=== PATIENT | male | born 1950 | race Hispanic/Latino ===

== ENCOUNTER 2025-02-24 08:47 | Emergency (ER) | payer MEDICARE ==
[~2025-02-24] VITALS: Ht 167.6 cm; Wt 95.3 kg
[~2025-02-24 08:47] MED LIST: AMLODIPINE BESYL5 MG PO; AMOXICILLIN500 MG PO; ANAPROX DS550 MG PEG; BENZONATATE100 MG PO; CLINDAMYCIN HC300 MG PO; ELIQUIS5 MG PO; ENALAPRIL MALEA20 MG PO; FERROUS SULFAT325 MG PO; FIORICET 50-301 EACH PO; KETOROLAC TROME10 MG PO; LACTULOSE20 GM/30 M PO; METOPROLOL SUCC25 MG PO; PANTOPRAZOLE SO20 MG PO; POTASSIUM PO; PRAVASTATIN SOD20 MG PO; PREDNISONE20 MG PO; SINGULAIR10 MG PO; TIMOLOL(T) OU; VALIUM2 MG PO; VASOTEC10 M1 PO; VASOTEC10 MG PO; antivert PO
[2025-02-24 08:53] VITALS: TEMP 98.7
[2025-02-24 09:17] LABS: BASOPHILS % 0.4 % (0.0-1.0); EOSINOPHILS # (AUTO) 0.3 (0.0-0.4); EOSINOPHILS % 5.2 % (0.0-6.0); HEMATOCRIT 41.3 % (38.2-49.6); HEMOGLOBIN 14.4 g/dL (14.0-18.0); MEAN CORPUSCULAR HEMOGLOBIN 30.6 pg (28-32); MEAN CORPUSCULAR HGB CONC 34.9 g/dL (31-35); MEAN CORPUSCULAR VOLUME 87.7 fL (81-99); MONOCYTES # (AUTO) 0.5 (0.2-0.8); MONOCYTES % 10.3 % (4.4-11.3); NEUTROPHILS # (AUTO) 2.3 (2.1-6.9); NEUTROPHILS % 44.9 % (38.7-80.0); PLATELET COUNT 141 x10e3/uL (140-360); RED BLOOD COUNT 4.71 x10e6/uL (4.3-5.7); RED CELL DISTRIBUTION WIDTH 13.2 % (11.7-14.4); WHITE BLOOD COUNT 5.16 x10e3/uL (4.8-10.8)
[2025-02-24] MEDS ORDERED: DORZOLAMIDE-TIM10 ML OP (09:20)
[2025-02-24] MEDS ORDERED: LUMIGAN2.5 M1 OP (09:20)
[2025-02-24] MEDS ORDERED: LOSARTAN POTASS25 MG PO (09:20)
[2025-02-24] MEDS ORDERED: ATORVASTATIN CA20 MG PO (09:22)
[2025-02-24] MEDS ORDERED: POTASSIUM CHLO10 ME1 PO (09:22)
[2025-02-24] MEDS ORDERED: FUROSEMIDE40 MG PO (09:22)
[2025-02-24] MEDS ORDERED: COSOPT EYE DROP10 ML OP (09:24)
[2025-02-24 09:36] LABS: ALBUMIN 4.1 g/dL (3.5-5.0); ALBUMIN/GLOBULIN RATIO 1.2 (0.8-2.0); ANION GAP 14.3 mmol/L (8-16); BILIRUBIN,TOTAL 1.1 mg/dL (0.2-1.2); CALCIUM 8.9 mg/dL (8.4-10.2); CREATININE, SERUM 0.95 mg/dL (0.72-1.25); TOTAL PROTEIN 7.4 g/dL (6.5-8.1)
[2025-02-24 09:38] LABS: POTASSIUM 3.3 mmol/L (3.5-5.1)
[2025-02-24] MEDS ORDERED: OMEPRAZOLE40 MG PO (10:56)
[2025-02-24 11:09] VITALS: PULSE 74; RESP 18; O2SAT 99
== END 2025-02-24 11:10 | disposition home or self-care (01) ==
LOC: ER 09:21
DX: R06.02 Shortness of breath (principal); R07.9 Chest pain, unspecified; I10 Essential (primary) hypertension; I48.91 Unspecified atrial fibrillation; K21.9 Gastro-esophageal reflux disease without esophagitis; H40.9 Unspecified glaucoma; R94.31 Abnormal electrocardiogram [ECG] [EKG]
CPT/HCPCS: 36415; 71045; 80053; 84484; 85025; 93005; 99284

== ENCOUNTER 2025-06-16 09:50 | Emergency (ER) | payer MEDICARE ==
[~2025-06-16] VITALS: Ht 167.6 cm; Wt 95.3 kg
[~2025-06-16 09:50] MED LIST changes: +ATORVASTATIN CA20 MG PO; +COSOPT EYE DROP10 ML OP; +DORZOLAMIDE-TIM10 ML OP; +FUROSEMIDE40 MG PO; +LOSARTAN POTASS25 MG PO; +LUMIGAN2.5 M1 OP; +OMEPRAZOLE40 MG PO; +POTASSIUM CHLO10 ME1 PO
[2025-06-16 11:22] LABS: BASOPHILS % 0.2 % (0.0-1.0); EOSINOPHILS % 4.3 % (0.0-6.0); LYMPHOCYTES % 43.3 % (18.0-39.1); MONOCYTES % 7.4 % (4.4-11.3); NEUTROPHILS % 44.6 % (38.7-80.0); RED CELL DISTRIBUTION WIDTH 12.5 % (11.7-14.4)
[2025-06-16 11:48] LABS: EST GLOMERULAR FILTRATION RATE 90.0 ML/MIN (>=60)
[2025-06-16] MEDS: ACETAMINOPHEN 325 MG TAB PO ONE (11:59)
[2025-06-16] MEDS ORDERED: PROCHLORPERAZINE EDISYLATE 5 MG/ML VIAL IV ONE (12:00)
[2025-06-16] MEDS: DIPHENHYDRAMINE HCL INJ 50 MG/ML VIAL IV ONE (12:44)
[2025-06-16] MEDS: KETOROLAC TROMETHAMINE 30 MG/ML VIAL IV STA (12:44)
[2025-06-16] MEDS: SODIUM CHLORIDE 0.9% 1000ML 1,000 ML IV ONE (12:45)
[2025-06-16] MEDS: PROCHLORPERAZINE EDISYLATE INJ 10 MG in Sodium Chloride 0.9% 50ML 50 ML IV ONE (12:46)
[2025-06-16 14:14] VITALS: PULSE 68; RESP 16; TEMP 97.8; O2SAT 99
== END 2025-06-16 14:22 | disposition home or self-care (01) ==
LOC: ER 10:20
DX: R51.9 Headache, unspecified (principal); I10 Essential (primary) hypertension; I48.91 Unspecified atrial fibrillation; K21.9 Gastro-esophageal reflux disease without esophagitis; H40.9 Unspecified glaucoma; Z87.19 Personal history of other diseases of the digestive system
CPT/HCPCS: 36415; 70450; 80053; 85025; 99284; J0780; J1200; J1885; J7030